=== PATIENT | female | born 1950 ===

== ENCOUNTER → 2018-09-26 08:49 | Outpatient (CLI) | payer MEDICARE, OTHER, SELFPAY ==
--- NOTE | 2018-09-26 | DI.MRI.S_ITS ---
PROCEDURE: MR LUMBAR SPINE WO CON INDICATIONS: LUMBAR BACK PAIN,LEFT HIP JOINT PAIN TECHNIQUE: Noncontrast sagittal T1 spin echo and T2 fast echo, sagittal STIR, axial T1 and T2 fast spin echo through the lumbar spine. In cases with scoliosis, additional coronal T2 fast spin echo may be performed. COMPARISON: None. FINDINGS: Image quality: Excellent. Alignment and Curvature: There is n Jeremiah I L3 on L4 anterolisthesis. Bone Marrow: Marrow is of normal overall signal. No acute vertebral body compression fractures. Spinal Cord: Conus medullaris terminates at the T12 level. Visualized cord demonstrates normal signal and size. Paraspinous Soft Tissues: No paravertebral masses. L1-L2: Normal appearance. L2-L3: Mild disc desiccation. Mild facet ligamentum flavum hypertrophy. No canal stenosis. No neural foraminal stenosis. L3-L4: Moderate disc desiccation and height loss. Trace anterolisthesis. Severe facet ligamentum flavum hypertrophy. Moderate canal stenosis. Moderate right neuroforaminal stenosis. No left neuroforaminal stenosis. L4-L5: Severe disc desiccation and height loss. Vacuum disc phenomenon. Reactive endplate changes and a Schmorl's node are present at the anterior inferior L4 vertebral body. Moderate facet ligamentum flavum hypertrophy. No canal stenosis. No neural foraminal stenosis. There is a small posterior focal high intensity zone. L5-S1: Moderate disc desiccation and height loss. Vacuum disc phenomenon. Moderate facet sclerosis. No canal stenosis. Moderate bilateral neuroforaminal narrowing. There is a small posterior focal high intensity zone. IMPRESSION: 1. Disc desiccation and height loss most severe at L4-5 and L5-S1 where there is also vacuum disc phenomenon. 2. Posterior focal annular tears at L4-5 and L5-S1. 3. Anterolisthesis, broad based disc bulge, and facet and ligamentum flavum hypertrophy at L3-4 with resultant moderate canal stenosis. 4. Moderate bilateral foraminal stenosis at L5-S1 and moderate right foraminal stenosis at L3-4. Dictated by: Aliyah Méndez M.D. on 09/26/2018 at 11:10 Approved by: Aliyah Méndez M.D. on 09/26/2018 at 11:15
--- NOTE | 2018-09-26 | DI.MRI.S_ITS ---
PROCEDURE: MR HIP LT WO CON INDICATIONS: LUMBAR BACK PAIN,LEFT HIP JOINT PAIN TECHNIQUE: Noncontrast coronal T1 spin echo and STIR through the bony pelvis. Coronal and axial T2 fast spin echo with fat saturation, sagittal T1 spin echo, and oblique axial T2 fast spin echo with fat saturation through the hip. COMPARISON: None. FINDINGS: Image quality: Excellent. Bones and joints: No intraosseous lesions or fractures. No avascular necrosis of the femoral heads. Small right hip joint effusion. Lower lumbar spondylosis Tendons and ligaments: The gluteus medius and minimus tendons appear thickened with intrasubstance signal change in keeping with mild partial tear/tendinopathy The nearby proximal iliotibial band also appears intact. Distal iliopsoas tendon appears T2 hypointense with adjacent soft tissue edema and mild thickening in keeping with strain and/or low-grade partial tear. The origin of the hamstring tendon is intact at the ischial tuberosity, as well as the associated sacrotuberous ligament. The straight and reflected heads of the rectus femoris muscle origin appear intact, as well as the conjoint tendon. The ligamentum teres appears intact where visualized. Labrum and cartilage: The acetabular labrum appears intact in the absence of intra-articular contrast. There is mild fraying of the anterosuperior labrum however no definite fluid signal intensity within the substance. Mild diffuse partial thickness loss of the acetabular and femoral head articular cartilage. The alpha angle of the femur is greater than normal limits at 59 degrees. This is due to a dysplastic osseous bump at femoral head neck junction, image 14 series 7. Soft tissues: Visualized muscles demonstrate normal bulk and internal signal. Quadratus femoris muscle demonstrates no internal edema to suggest ischiofemoral impingement. The proximal sciatic neurovascular bundle appears normal adjacent to the hamstring tendons. No free pelvic fluid. Bladder wall thickness is normal. Genitourinary structures and bowel loops appear normal where visualized. IMPRESSION: Acute strain of the insertion of the iliopsoas tendon. Mild right hip abductor (gluteus medius and minimus) insertional tendinopathy, technically age-indeterminate. Mild hamstring origin tendinopathy also age indeterminate. Small joint effusion. Small dysplastic osseous bump at the anterior femoral head neck junction, with associated abnormal alpha angle. This raises the possibility of femoral acetabular impingement (CAM type) although only in the appropriate clinical context. Chronic appearing ill-defined fraying of the anterosuperior labrum probably age-appropriate although if needed, dedicated MR arthrography could be performed. Dictated by: Bjorn Cleveland M.D. on 09/26/2018 at 12:48 Approved by: Bjorn Cleveland M.D. on 09/26/2018 at 13:00
== END ==
PROVIDERS: Family Provider Physician Assistant Medical; PCP Physician Assistant Medical; Visit Provider Physician Assistant Medical
DX: M54.5 Low back pain (principal); M25.552 Pain in left hip; S76.012A Strain of muscle, fascia and tendon of left hip, initial encounter; M48.061 Spinal stenosis, lumbar region without neurogenic claudication; M51.86 Other intervertebral disc disorders, lumbar region; M51.87 Other intervertebral disc disorders, lumbosacral region; M43.16 Spondylolisthesis, lumbar region; M25.452 Effusion, left hip
CPT/HCPCS: 72148; 73721

== ENCOUNTER → 2018-10-13 14:03 | Outpatient (CLI) | payer MEDICARE, OTHER, SELFPAY ==
--- NOTE | 2018-10-13 | DI.MG.S_ITS ---
BILATERAL DIGITAL SCREENING MAMMOGRAM 3D/2D WITH CAD: 10/13/2018 CLINICAL: Routine screening. Comparison is made to exam dated: 01/01/2016 mammogram - [facility]. The tissue of both breasts is heterogeneously dense. This may lower the sensitivity of mammography. Current study was also evaluated with a Computer Aided Detection (CAD) system. There are benign calcifications in both breasts. No significant masses, calcifications, or other findings are seen in either breast. There has been no significant interval change. IMPRESSION: There is no mammographic evidence of malignancy. A 1 year screening mammogram is recommended. This exam was interpreted at Station ID: [id number]. NOTE: For mammograms, a report in lay terms will be sent to the patient. Approximately 15% of breast malignancies will not be visualized mammographically. In the management of a palpable breast mass, a negative mammogram must not discourage biopsy of a clinically suspicious lesion. Electronically Signed By: Josafat River M.D. aty/barrington:10/13/2018 14:32:26 letter sent: Normal Exam ACR BI-RADS Category 2: Benign Finding(s) 3342F
== END ==
PROVIDERS: PCP Physician Assistant; Visit Provider Physician Assistant
DX: Z12.31 Encounter for screening mammogram for malignant neoplasm of breast (principal); Z78.0 Asymptomatic menopausal state; M85.852 Other specified disorders of bone density and structure, left thigh; E11.9 Type 2 diabetes mellitus without complications
CPT/HCPCS: 77063; 77067; 77080

== ENCOUNTER → 2019-07-20 11:51 | Outpatient (CLI) | payer MEDICARE, OTHER, SELFPAY ==
--- NOTE | 2019-07-20 | DI.US.S_ITS ---
PROCEDURE: US PELVIC COMPLETE INDICATIONS: PELVIC PAIN TECHNIQUE: Real-time scanning was performed of the pelvic organs, with image documentation. Additional endovaginal scanning was necessary due to incomplete visualization of the adnexal and endometrial structures by transabdominal scanning. COMPARISON: None. FINDINGS: Uterus: Uterus is surgically absent. Ovaries: Right ovary measures 1.2 x 0.5 x 0.7 cm and the left measures 0.9 x 0.6 x 0.8 cm. IMPRESSION: Prior hysterectomy, normal appearing ovaries. A definite source of pelvic pain is not found by this examination Dictated by: Unruly Way M.D. on 07/20/2019 at 13:14 Approved by: Unruly Way M.D. on 07/20/2019 at 13:19
== END ==
PROVIDERS: Family Provider Physician Assistant; PCP Physician Assistant; Visit Provider Physician Assistant
DX: R10.2 Pelvic and perineal pain (principal); Z90.710 Acquired absence of both cervix and uterus
CPT/HCPCS: 76830; 76856

== ENCOUNTER → 2020-06-17 14:41 | Outpatient (ROUT) | payer MEDICARE, OTHER, SELFPAY ==
[2020-06-17 16:04] LABS: Hemoglobin A1C% w Est Avg Glu 6.1 % (4.0-6.0)
== END ==
PROVIDERS: Family Provider Physician Assistant; PCP Physician Assistant; Visit Provider Physician Assistant
DX: R73.03 Prediabetes (principal)
CPT/HCPCS: 83036

== ENCOUNTER → 2020-10-03 10:08 | Outpatient (CLI) | payer MEDICARE, OTHER, SELFPAY ==
[2020-10-03 11:07] LABS: Add Manual Diff / Slide Review NO; Basophils Absolute Auto 100 /uL (0-100); Basophils Percent Auto 1.2 % (0-2); Eosinophils Absolute Auto 200 /uL (0-450); Eosinophils Percent Auto 4.6 % (2-4); Hematocrit 40.4 % (36-46); Hemoglobin 13.7 g/dL (12.0-16.0); Lymphocytes Absolute Auto 2100 /uL (1100-4500); Lymphocytes Percent Auto 42.7 % (25-40); Mean Corpuscular HGB Conc 33.9 % (30-36); Mean Corpuscular Hemoglobin 30.9 PG (26-34); Mean Corpuscular Volume 91.2 fL (80-100); Monocytes Absolute Auto 400 /uL (0-900); Monocytes Percent Auto 7.8 % (3-14); Neutrophils Absolute Auto 2100 /uL (1500-7000); Neutrophils Percent Auto 43.7 % (50-75); Platelet Count 216 X10^3/uL (150-400); Red Blood Cell Count 4.43 X10^6/uL (4.0-5.2); Red Cell Distribution Width 13.4 % (11.6-14.8); White Blood Cell Count 4.8 X10^3/uL (4.5-11.0)
[2020-10-03 11:26] LABS: Erythrocyte Sedimentation Rate 9 MM/HR (0-20)
[2020-10-03 12:31] LABS: HEMOLYSIS < 15 (0-50); Iron 101 ug/dL (37-170)
[2020-10-03 12:36] LABS: Alanine Aminotransferase 17 IU/L (<35); Albumin 4.3 g/dL (3.5-5.0); Albumin Globulin Ratio 1.5 (1.0-2.8); Alkaline Phosphatase 66 U/L (38-126); Aspartate Aminotransferase 25 IU/L (14-36); BUN Creatinine Ratio 27.5 (6-22); Bilirubin Total 0.2 mg/dL (0.2-1.3); Blood Urea Nitrogen 19 mg/dL (7-17); Calcium 9.7 mg/dL (8.4-10.2); Carbon Dioxide 30 mmol/L (22-32); Chloride 104 mmol/L (98-107); Estimated Glomerular Filt Rate > 60.0 mL/min (>60); Globulin 2.8 g/dL (1.7-4.1); Glucose 102 mg/dL (80-110); HEMOLYSIS < 15 (0-50); Potassium 4.3 mmol/L (3.4-5.1); Sodium 138 mmol/L (137-145); Total Protein 7.1 g/dL (6.3-8.2)
[2020-10-03 12:43] LABS: Percent Iron Saturation 31 % (15-50); Total Iron Binding Capacity 331 ug/dL (265-497); Transferrin 256 mg/dL (206-381)
[2020-10-03 13:04] LABS: TSH w/ Reflex to FT4 1.36 uIU/mL (0.47-4.68)
[2020-10-03 13:10] LABS: Ferritin 47 ng/mL (11-264)
[2020-10-03 13:12] LABS: Hemoglobin A1C% w Est Avg Glu 5.8 % (4.0-6.0)
[2020-10-03 13:16] LABS: C-Reactive Protein Quant < 0.5 mg/dL (<1.0)
[2020-10-03 13:24] LABS: Vitamin B12 > 1000 pg/mL (239-931)
[2020-10-04 14:07] LABS: SS A Ro Sjogrens Antibody < 0.2 AI (0.0-0.9); SS B La Sjogrens Antibody < 0.2 AI (0.0-0.9)
[2020-10-05 13:07] LABS: ANA Screen, IFA Negative (.)
[2020-10-06 14:05] LABS: Albumin 4.1 g/dL (2.9-4.4); Alpha-1-Globulin 0.2 g/dL (0.0-0.4); Alpha-2-Globulin 0.7 g/dL (0.4-1.0); Gamma Globulin 0.9 g/dL (0.4-1.8); Globulin Total 2.9 g/dL (2.2-3.9)
== END ==
PROVIDERS: Family Provider Physician Assistant; PCP Physician Assistant; Referring Provider Physician Assistant; Visit Provider Physician Assistant
DX: R73.03 Prediabetes (principal); L65.9 Nonscarring hair loss, unspecified; G60.9 Hereditary and idiopathic neuropathy, unspecified; E53.8 Deficiency of other specified B group vitamins; K13.79 Other lesions of oral mucosa; R68.2 Dry mouth, unspecified; R53.83 Other fatigue; M25.50 Pain in unspecified joint; D64.9 Anemia, unspecified
CPT/HCPCS: 36415; 80053; 82607; 82728; 83036; 83540; 83550; 84155; 84165; 84443; 85025; 85651; 86038; 86140; 86235

== ENCOUNTER → 2021-05-12 13:15 | Outpatient (CLI) | payer MEDICARE, OTHER, SELFPAY ==
--- NOTE | 2021-05-12 | DI.RAD.S_ITS ---
PROCEDURE: XR HIP W PEL IF DONE RT 2V INDICATIONS: Pain in right hip TECHNIQUE: AP pelvis with lateral view(s) of the right hip(s). COMPARISON: None. FINDINGS: Bones: No fractures or dislocations. Moderate bilateral hip joint osteoarthritic changes are seen. No evidence of avascular necrosis of femoral head. Pelvic ring appears intact. No suspicious bony lesions. Soft tissues: The visualized bowel gas pattern is normal. No suspicious soft tissue calcifications. IMPRESSION: Moderate bilateral hip joint osteoarthritis. No fracture or dislocation. No evidence of avascular necrosis. Dictated by: Daniel Patrick M.D. on 05/12/2021 at 15:20 Approved by: Daniel Patrick M.D. on 05/12/2021 at 15:21
== END ==
PROVIDERS: Family Provider Physician Assistant; PCP Physician Assistant; Referring Provider Internal Medicine; Visit Provider Internal Medicine
DX: M25.551 Pain in right hip (principal); M16.0 Bilateral primary osteoarthritis of hip
CPT/HCPCS: 73502

== ENCOUNTER → 2021-06-04 14:45 | Outpatient (CLI) | payer MEDICARE, OTHER, SELFPAY ==
--- NOTE | 2021-06-04 | DI.MG.S_ITS ---
BILATERAL DIGITAL SCREENING MAMMOGRAM 3D/2D WITH CAD: 06/04/2021 CLINICAL: Routine screening. Comparison is made to exams dated: 10/13/2018 mammogram - [facility] and 01/01/2016 mammogram - [facility]. The tissue of both breasts is heterogeneously dense. This may lower the sensitivity of mammography. Current study was also evaluated with a Computer Aided Detection (CAD) system. There are benign calcifications in the right breast. No significant masses, calcifications, or other findings are seen in either breast. There has been no significant interval change. IMPRESSION: BENIGN There is no mammographic evidence of malignancy. A 1 year screening mammogram is recommended. This exam was interpreted at Station ID: [id number]. NOTE: For mammograms, a report in lay terms will be sent to the patient. Approximately 15% of breast malignancies will not be visualized mammographically. In the management of a palpable breast mass, a negative mammogram must not discourage biopsy of a clinically suspicious lesion. Electronically Signed By: Matt cordoba/barrington:06/04/2021 16:19:13 letter sent: Normal Exam ACR BI-RADS Category 2: Benign Finding(s) 3342F
== END ==
PROVIDERS: Family Provider Physician Assistant; PCP Physician Assistant; Referring Provider Internal Medicine; Visit Provider Internal Medicine
DX: Z12.31 Encounter for screening mammogram for malignant neoplasm of breast (principal)
CPT/HCPCS: 77063; 77067